=== PATIENT | female | born 1950 | race Caucasian/White ===

== ENCOUNTER 2017-04-20 10:45 | Inpatient (IN) | payer MEDICARE ==
[~2017-04-20] VITALS: Ht 165.1 cm; Wt 95.4 kg
[2017-04-20] MEDS ORDERED: SODIUM CHLORIDE 0.9% 1,000 ML IV ONE (10:58)
[2017-04-20] MEDS ORDERED: SODIUM CHLORIDE FLUSH 10ML SYR IVF ONE (11:00)
[2017-04-20] MEDS ORDERED: ONDANSETRON 2MG/ML, 2ML IVPush ONE ×2 (11:00→14:00)
[2017-04-20] MEDS ORDERED: SODIUM CHLORIDE 0.9% 1,000ML IVBOLUS ONE (11:00)
[2017-04-20 11:15] LABS: BASOPHILS % (AUTO) 0 % (0-1); EOSINOPHILS # (AUTO) 0.01 x10^3/uL (0-0.4); EOSINOPHILS % (AUTO) 0 % (1-7); LYMPHOCYTES # (AUTO) 1.09 x10^3/uL (1-3.4); LYMPHOCYTES % (AUTO) 17 % (22-44); MD NO; MEAN CORPUSCULAR HEMOGLOBIN 31.2 pg (27.0-34.8); MEAN CORPUSCULAR HGB CONC 33.7 g/dL (32.4-35.8); MEAN CORPUSCULAR VOLUME 92.6 fL (80-100); MEAN PLATELET VOLUME 9.1 fL (7.4-10.4); MONOCYTES # (AUTO) 0.13 x10^3/uL (0.2-0.8); MONOCYTES % (AUTO) 2 % (2-9); NEUTROPHILS # (AUTO) 5.34 x10^3/uL (1.8-6.8); NEUTROPHILS % (AUTO) 81 % (42-75); PLATELET COUNT 157 x10^3/uL (130-400); RED BLOOD COUNT 5.04 x10^6/uL (3.82-5.3); RED CELL DISTRIBUTION WIDTH 14.3 % (9.6-15.2)
[2017-04-20 11:39] LABS: ALBUMIN 3.7 g/dL (3.4-5.0); ANION GAP 7 mmol/L (5-15); CALCIUM 8.8 mg/dL (8.5-10.1); CHLORIDE 108 mmol/L (98-107)
[2017-04-20 11:42] LABS: ALANINE AMINOTRANSFERASE 20 U/L (12-78); ALKALINE PHOSPHATASE 105 U/L (45-117); BILIRUBIN,TOTAL 0.7 mg/dL (0.2-1.0); CREATININE 1.02 mg/dL (0.55-1.02); TOTAL PROTEIN 7.7 g/dL (6.4-8.2)
[2017-04-20 12:27] LABS: MICROSCOPIC NOT IND
[2017-04-20] MEDS ORDERED: OMNIPAQUE 350 MG/ML, 100ML BOTTLE ONE (12:51)
[2017-04-20 12:54] LABS: CULTURE INDICATED? NO
[2017-04-20] MEDS ORDERED: MORPHINE SULFATE 4 MG/ML, 1ML IVPush PRN (14:00)
[2017-04-20] MEDS ORDERED: ONDANSETRON 2MG/ML, 2ML ONE (14:30)
[2017-04-20] MEDS ORDERED: MORPHINE SULFATE 4 MG/ML, 1ML ONE (14:30)
[2017-04-20] MEDS ORDERED: ACETAMINOPHEN 325 MG TABLET ONE (15:00)
[2017-04-20] MEDS ORDERED: SODIUM CHLORIDE FLUSH 10ML SYR IVF PRN (15:00)
[2017-04-20] MEDS ORDERED: ACETAMINOPHEN 325 MG TABLET PO ONE (15:00)
[2017-04-20] MEDS ORDERED: LISI40TA PO (15:05)
[2017-04-20] MEDS ORDERED: OMEP-110 PO (15:05)
[2017-04-20] MEDS ORDERED: DULO60CA7 PO (15:06)
[2017-04-20] MEDS ORDERED: GABA300C10 PO (15:06)
[2017-04-20] MEDS ORDERED: TIZA4TAB9 PO (15:07)
[2017-04-20] MEDS ORDERED: HYDR12.58 PO (15:07)
[2017-04-20] MEDS ORDERED: LOVA10TA PO (15:08)
[2017-04-20 15:21] LABS: RAPID INFLUENZA A Negative (Negative); RAPID INFLUENZA B Negative (Negative)
[2017-04-20] MEDS ORDERED: ONDANSETRON 2MG/ML, 2ML IVPush PRN (16:30)
[2017-04-20] MEDS ORDERED: ONDANSETRON ODT 4 MG PO PRN (16:30)
[2017-04-20] MEDS ORDERED: PROMETHAZINE 25 MG/ML, 1ML IM PRN (16:30)
[2017-04-20 16:34] VITALS: BP 134/84
[2017-04-20] MEDS: GABAPENTIN 300 MG CAPSULE PO SCH ×2 (18:37→20:39)
[2017-04-20] MEDS: SODIUM CHLORIDE 0.9% 1,000 ML IV SCH (18:38)
[2017-04-20] MEDS: ENOXAPARIN 40 MG/0.4 ML SQ SCH (18:38)
[2017-04-20 19:02] VITALS: BP 127/75
[2017-04-20] MEDS: TIZANIDINE 4MG TABLET PO SCH (20:39)
[2017-04-20] MEDS: SIMVASTATIN 5 MG TABLET PO SCH (21:42)
[2017-04-21 01:17] VITALS: BP 116/82
[2017-04-21] MEDS: SODIUM CHLORIDE 0.9% 1,000 ML IV SCH ×3 (03:19→23:57)
[2017-04-21 05:50] LABS: CHLORIDE 103 mmol/L (98-107)
[2017-04-21 05:57] LABS: BASOPHILS % (AUTO) 0 % (0-1); EOSINOPHILS # (AUTO) 0.01 x10^3/uL (0-0.4); EOSINOPHILS % (AUTO) 0 % (1-7); LYMPHOCYTES # (AUTO) 0.92 x10^3/uL (1-3.4); LYMPHOCYTES % (AUTO) 25 % (22-44); MD NO; MEAN CORPUSCULAR HEMOGLOBIN 30.9 pg (27.0-34.8); MEAN CORPUSCULAR VOLUME 93.5 fL (80-100); MEAN PLATELET VOLUME 9.7 fL (7.4-10.4); MONOCYTES # (AUTO) 0.24 x10^3/uL (0.2-0.8); MONOCYTES % (AUTO) 6 % (2-9); NEUTROPHILS # (AUTO) 2.56 x10^3/uL (1.8-6.8); NEUTROPHILS % (AUTO) 69 % (42-75); PLATELET COUNT 135 x10^3/uL (130-400); RED BLOOD COUNT 4.23 x10^6/uL (3.82-5.3); RED CELL DISTRIBUTION WIDTH 14.3 % (9.6-15.2)
[2017-04-21 06:35] LABS: ALANINE AMINOTRANSFERASE 20 U/L (12-78); ALKALINE PHOSPHATASE 83 U/L (45-117); ANION GAP 7 mmol/L (5-15); BILIRUBIN,TOTAL 0.7 mg/dL (0.2-1.0); CALCIUM 7.8 mg/dL (8.5-10.1); CREATININE 0.88 mg/dL (0.55-1.02); THYROID STIMULATING HORMONE 0.802 mIU/L (0.358-3.740); TOTAL PROTEIN 6.3 g/dL (6.4-8.2)
[2017-04-21 07:02] VITALS: BP 135/80
[2017-04-21] MEDS: LISINOPRIL 20 MG TABLET PO SCH (08:10)
[2017-04-21] MEDS: OMEPRAZOLE 20 MG CAPSULE.DR PO SCH (08:10)
[2017-04-21] MEDS: GABAPENTIN 300 MG CAPSULE PO SCH ×3 (08:10→21:13)
[2017-04-21] MEDS: DULOXETINE 30 MG CAPSULE.DR PO SCH (08:10)
[2017-04-21] MEDS: POTASSIUM CHLORIDE 20 MEQ TAB.ER.PRT PO SCH ×2 (08:10→17:08)
[2017-04-21 13:00] VITALS: BP 110/62
[2017-04-21] MEDS: ENOXAPARIN 40 MG/0.4 ML SQ SCH (17:08)
[2017-04-21 18:25] VITALS: BP 118/74
[2017-04-21] MEDS ORDERED: ACETAMINOPHEN 325 MG TABLET PO PRN (19:00)
[2017-04-21] MEDS: TIZANIDINE 4MG TABLET PO SCH (21:13)
[2017-04-21] MEDS: SIMVASTATIN 5 MG TABLET PO SCH (21:33)
[2017-04-22 02:55] VITALS: BP 102/65
[2017-04-22 05:07] LABS: ANION GAP 4 mmol/L (5-15); CALCIUM 7.9 mg/dL (8.5-10.1); CHLORIDE 106 mmol/L (98-107); CREATININE 0.75 mg/dL (0.55-1.02)
[2017-04-22] MEDS: SODIUM CHLORIDE 0.9% 1,000 ML IV SCH ×4 (06:00→20:18)
[2017-04-22] MEDS: OMEPRAZOLE 20 MG CAPSULE.DR PO SCH (07:30)
[2017-04-22] MEDS: DULOXETINE 30 MG CAPSULE.DR PO SCH (08:04)
[2017-04-22] MEDS: POTASSIUM CHLORIDE 20 MEQ TAB.ER.PRT PO SCH ×2 (08:04→15:59)
[2017-04-22] MEDS: GABAPENTIN 300 MG CAPSULE PO SCH ×3 (08:07→19:59)
[2017-04-22] MEDS: LISINOPRIL 20 MG TABLET PO SCH (08:07)
[2017-04-22 08:13] VITALS: BP 119/67
[2017-04-22 12:52] LABS: CLOSTRIDIUM DIFFICILE ANTIGEN NEGATIVE; CLOSTRIDIUM DIFFICILE TOXIN NEGATIVE (Negative)
[2017-04-22 14:15] VITALS: BP 117/66
[2017-04-22] MEDS: ENOXAPARIN 40 MG/0.4 ML SQ SCH (16:00)
[2017-04-22 19:18] VITALS: BP 131/79
[2017-04-22] MEDS: SIMVASTATIN 5 MG TABLET PO SCH (19:59)
[2017-04-22] MEDS: TIZANIDINE 4MG TABLET PO SCH (20:00)
[2017-04-23 01:49] VITALS: BP 132/82
[2017-04-23 07:37] VITALS: BP 148/83
[2017-04-23] MEDS: POTASSIUM CHLORIDE 20 MEQ TAB.ER.PRT PO SCH (07:49)
[2017-04-23] MEDS: LISINOPRIL 20 MG TABLET PO SCH (07:49)
[2017-04-23] MEDS: GABAPENTIN 300 MG CAPSULE PO SCH (07:49)
[2017-04-23] MEDS: DULOXETINE 30 MG CAPSULE.DR PO SCH (07:49)
[2017-04-23] MEDS: OMEPRAZOLE 20 MG CAPSULE.DR PO SCH (07:49)
[2017-04-23] MEDS: SODIUM CHLORIDE 0.9% 1,000 ML IV SCH (11:38)
== END 2017-04-23 12:08 | disposition home or self-care (01) | DRG 392 ==
LOC: ED 11:18 → 3NE 16:17
PROVIDERS: ADMIT Hospitalist; ATTEND Hospitalist
DX: A08.4 Viral intestinal infection, unspecified (principal); K80.20 Calculus of gallbladder without cholecystitis without obstruction; E78.5 Hyperlipidemia, unspecified; J98.11 Atelectasis; K21.9 Gastro-esophageal reflux disease without esophagitis; E86.0 Dehydration; E87.6 Hypokalemia; G89.29 Other chronic pain; M79.7 Fibromyalgia; I10 Essential (primary) hypertension; M19.90 Unspecified osteoarthritis, unspecified site; Z82.49 Family history of ischemic heart disease and other diseases of the circulatory system; Z79.899 Other long term (current) drug therapy; Z79.1 Long term (current) use of non-steroidal anti-inflammatories (NSAID)
CPT/HCPCS: 36415; 71010; 71020; 74177; 74181; 76700; 80048; 80053; 81003; 83605; 83690; 84145; 84443; 85025; 87040; 87324; 87400; 93005; 96361; 96374; 96375; 96376; J1650; J2405; Q9967; J7030